=== PATIENT | female | born 1995 | race African-American/Black ===

== ENCOUNTER 2018-11-29 09:41 | Emergency (ER) | payer BC, OTHER ==
[2018-11-29 09:50] VITALS: RESP 18; TEMP 98.4
[2018-11-29] MEDS ORDERED: SODIUM CHLORIDE 0.9% 1,000 ML IV ONE (09:52)
--- NOTE | 2018-11-29 10:05 | ED ---
Female Urogenital HPI - General Chief complaint: Vaginal Bleeding Stated complaint: vaginal bleeding Time Seen by Provider: 11/29/18 09:48 Source: patient, RN notes reviewed, old records reviewed Mode of arrival: ambulatory Limitations: no limitations - History of Present Illness Initial comments: Patient is a 23-year-old female with chief complaint of vaginal bleeding since November 17. She reports that that time it was a small amount of bleeding. Caron beard was seen at [place] [id number] that she was bleeding that she had a negative hCG test. He stated the Patient.. Patient reports that she was told to come back for evaluation of the bleeding to stay to persist. She decided to come here instead. Patient states that she does not have an CHIEF DOG LICENSE INSPECTOR. She reports that she is concerned that she could be having a miscarriage. She reports having heavy bleeding for the past 2 days. - Related Data Home Medications Medication Instructions Recorded Confirmed No Known Home Medications 11/29/18 11/29/18 Allergies Allergy/AdvReac Type Severity Reaction Status Date / Time No Known Allergies Allergy Verified 11/29/18 10:03 Review of Systems ROS Statement: Those systems with pertinent positive or pertinent negative responses have been documented in the HPI. ROS Other: All systems not noted in ROS Statement are negative. Past Medical History Past Medical History: No Reported History History of Any Multi-Drug Resistant Organisms: None Reported Past Surgical History: No Surgical Hx Reported Past Psychological History: Anxiety, Depression Smoking Status: Current every day smoker Past Alcohol Use History: Occasional Past Drug Use History: Marijuana General Exam - General Exam Comments Initial Comments: His is a 23-year-old female. Alert and oriented 3. No significant distress. Limitations: no limitations General appearance: alert, in no apparent distress Head exam: Present: atraumatic Eye exam: Present: normal appearance, PERRL, EOMI. Absent: scleral icterus, conjunctival injection, periorbital swelling ENT exam: Present: normal exam, mucous membranes moist Neck exam: Present: normal inspection. Absent: tenderness, meningismus, lymphadenopathy Respiratory exam: Present: normal lung sounds bilaterally. Absent: respiratory distress, wheezes, rales, rhonchi, stridor Cardiovascular Exam: Present: regular rate, normal rhythm, normal heart sounds. Absent: systolic murmur, diastolic murmur, rubs, gallop, clicks GI/Abdominal exam: Present: soft, normal bowel sounds. Absent: distended, tenderness, guarding, rebound, rigid External exam: Present: normal external exam Speculum exam: Present: normal speculum exam, vaginal bleeding Extremities exam: Present: normal inspection, full ROM, normal capillary refill. Absent: tenderness, pedal edema, joint swelling, calf tenderness Back exam: Present: normal inspection Neurological exam: Present: alert, oriented X3, CN II-XII intact Psychiatric exam: Present: normal affect, normal mood Skin exam: Present: warm Course Vital Signs 11/29/18 09:46 Temperature 98.4 F Pulse Rate 118 H Respiratory 18 Rate Blood Pressure 119/72 O2 Sat by Pulse 99 Oximetry Medical Decision Making - Medical Decision Making 23 year old female, no distress. Presents today for heavy vaginal bleeding the past 2 days Patient having vaginal bleeding since November 17. At this time she did have quite audibly Exam. HCGs are negative. Patient's hemoglobin is stable. ALSO completed to show thickened endometrium. Patient will be advised to follow-up with CHIEF DOG LICENSE INSPECTOR. Discussed that she can return of bleeding T's persist over his was dizziness or lightheadedness. All questions answered return parameters were discussed. - Lab Data Result diagrams: 11/29/18 10:30 11/29/18 10:30 Lab Results 11/29/18 11/29/18 11/29/18 Range/Units 10:25 10:25 10:30 WBC (3.8-10.6) k/uL RBC (3.80-5.40) m/uL Hgb (11.4-16.0) gm/dL Hct (34.0-46.0) % MCV (80.0-100.0) fL MCH (25.0-35.0) pg MCHC (31.0-37.0) g/dL RDW (11.5-15.5) % Plt Count (150-450) k/uL Neutrophils % % Lymphocytes % % Monocytes % % Eosinophils % % Basophils % % Neutrophils # (1.3-7.7) k/uL Lymphocytes # (1.0-4.8) k/uL Monocytes # (0-1.0) k/uL Eosinophils # (0-0.7) k/uL Basophils # (0-0.2) k/uL PT (9.0-12.0) sec INR (<1.2) APTT (22.0-30.0) sec Sodium (137-145) mmol/L Potassium (3.5-5.1) mmol/L Chloride (98-107) mmol/L Carbon Dioxide (22-30) mmol/L Anion Gap mmol/L BUN (7-17) mg/dL Creatinine (0.52-1.04) mg/dL Est GFR (CKD-EPI)AfAm (>60 ml/min/1.73 sqM) Est GFR (CKD-EPI)NonAf (>60 ml/min/1.73 sqM) Glucose (74-99) mg/dL Calcium (8.4-10.2) mg/dL Total Bilirubin (0.2-1.3) mg/dL AST (14-36) U/L ALT (9-52) U/L Alkaline Phosphatase (38-126) U/L Total Protein (6.3-8.2) g/dL Albumin (3.5-5.0) g/dL HCG, Quant mIU/mL Urine Color Yellow Urine Appearance Clear (Clear) Urine pH 7.5 (5.0-8.0) Ur Specific [place] 1.015 (1.001-1.035) Urine Protein Negative (Negative) Urine Glucose (UA) Negative (Negative) Urine Ketones Negative (Negative) Urine Blood Large H (Negative) Urine Nitrite Negative (Negative) Urine Bilirubin Negative (Negative) Urine Urobilinogen <2.0 (<2.0) mg/dL Ur Leukocyte Esterase Negative (Negative) Urine RBC 164 H (0-5) /hpf Urine WBC <1 (0-5) /hpf Ur Squamous Epith Cells <1 (0-4) /hpf Amorphous Sediment Occasional H (None) /hpf Urine Mucus Rare H (None) /hpf Urine HCG, Qual Not Detected (Not Detectd) Blood Type O Positive Blood Type Recheck [facility] ONLY 11/29/18 11/29/18 11/29/18 Range/Units 10:30 10:30 10:30 WBC 6.1 (3.8-10.6) k/uL RBC 4.51 (3.80-5.40) m/uL Hgb 13.1 (11.4-16.0) gm/dL Hct 39.0 (34.0-46.0) % MCV 86.4 (80.0-100.0) fL MCH 29.1 (25.0-35.0) pg MCHC 33.7 (31.0-37.0) g/dL RDW 15.4 (11.5-15.5) % Plt Count 171 (150-450) k/uL Neutrophils % 66 % Lymphocytes % 24 % Monocytes % 5 % Eosinophils % 3 % Basophils % 1 % Neutrophils # 4.0 (1.3-7.7) k/uL Lymphocytes # 1.4 (1.0-4.8) k/uL Monocytes # 0.3 (0-1.0) k/uL Eosinophils # 0.2 (0-0.7) k/uL Basophils # 0.1 (0-0.2) k/uL PT 10.3 (9.0-12.0) sec INR 1.0 (<1.2) APTT 25.3 (22.0-30.0) sec Sodium 140 (137-145) mmol/L Potassium 4.3 (3.5-5.1) mmol/L Chloride 108 H (98-107) mmol/L Carbon Dioxide 25 (22-30) mmol/L Anion Gap 7 mmol/L BUN 11 (7-17) mg/dL Creatinine 0.60 (0.52-1.04) mg/dL Est GFR (CKD-EPI)AfAm >90 (>60 ml/min/1.73 sqM) Est GFR (CKD-EPI)NonAf >90 (>60 ml/min/1.73 sqM) Glucose 79 (74-99) mg/dL Calcium 9.3 (8.4-10.2) mg/dL Total Bilirubin 0.6 (0.2-1.3) mg/dL AST 18 (14-36) U/L ALT 17 (9-52) U/L Alkaline Phosphatase 48 (38-126) U/L Total Protein 7.1 (6.3-8.2) g/dL Albumin 4.3 (3.5-5.0) g/dL HCG, Quant <2.4 mIU/mL Urine Color Urine Appearance (Clear) Urine pH (5.0-8.0) Ur Specific [place] (1.001-1.035) Urine Protein (Negative) Urine Glucose (UA) (Negative) Urine Ketones (Negative) Urine Blood (Negative) Urine Nitrite (Negative) Urine Bilirubin (Negative) Urine Urobilinogen (<2.0) mg/dL Ur Leukocyte Esterase (Negative) Urine RBC (0-5) /hpf Urine WBC (0-5) /hpf Ur Squamous Epith Cells (0-4) /hpf Amorphous Sediment (None) /hpf Urine Mucus (None) /hpf Urine HCG, Qual (Not Detectd) Blood Type Blood Type Recheck - Radiology Data Radiology results: report reviewed Physical, but fluid and debris within the endometrium. Free fluid in the pelvis. Evidence of bleeding or hemorrhage. Including an hCG for retained products or missed . Endometrial pathology or infectious etiology also differential. Disposition Clinical Impression: Menorrhagia Disposition: HOME SELF-CARE Condition: Good Instructions (If sedation given, give patient instructions): Menstruation (ED) Additional Instructions: Patient advised follow-up with CHIEF DOG LICENSE INSPECTOR. Return to emergency department if any alarming signs or symptoms occur. Is patient prescribed a controlled substance at d/c from ED?: No Referrals: None,Stated [Primary Care Provider] - 1-2 days Areli Tovar DO [Doctor of Osteopathic Medicine] - 1-2 days Time of Disposition: 12:56
[2018-11-29 10:36] LABS: Amorphous Sediment,Urine Occasional /hpf; Appearance,Urine Clear (Clear); Bilirubin,Urine Negative (Negative); Blood,Urine Large (Negative); Color,Urine Yellow; Glucose,Urine (UA) Negative (Negative); Ketones,Urine Negative (Negative); Leukocyte Esterase,Urine Negative (Negative); Mucus,Urine Rare /hpf; Nitrite,Urine Negative (Negative); PH, Urine 7.5 (5.0-8.0); Protein,Urine Negative (Negative); RBC,Urine 164 /hpf (0-5); Specific Gravity,Urine 1.015 (1.001-1.035); Squamous Epithelial Cell,Urine <1 /hpf (0-4); Urobilinogen,Urine <2.0 mg/dL (<2.0); WBC,Urine <1 /hpf (0-5)
[2018-11-29 11:07] LABS: Basophils # (A) 0.1 k/uL (0-0.2); Basophils % (A) 1 %; Eosinophils # (A) 0.2 k/uL (0-0.7); Eosinophils % (A) 3 %; HGB 13.1 gm/dL (11.4-16.0); Lymphocytes # (A) 1.4 k/uL (1.0-4.8); Lymphocytes % (A) 24 %; MCH 29.1 pg (25.0-35.0); MCHC 33.7 g/dL (31.0-37.0); MCV 86.4 fL (80.0-100.0); Mean Platelet Volume 7.3; Monocytes # (A) 0.3 k/uL (0-1.0); Monocytes % (A) 5 %; Neutrophils % (A) 66 %; Platelet Count 171 k/uL (150-450); RBC 4.51 m/uL (3.80-5.40); RDW 15.4 % (11.5-15.5); WBC 6.1 k/uL (3.8-10.6)
[2018-11-29 11:20] LABS: ALT 17 U/L (9-52); AST 18 U/L (14-36); African American GFR (CKD) >90 (>60 ml/min/1.73 sqM); Albumin 4.3 g/dL (3.5-5.0); Alkaline Phosphatase 48 U/L (38-126); Anion Gap 7 mmol/L; Blood Urea Nitrogen 11 mg/dL (7-17); Calcium 9.3 mg/dL (8.4-10.2); Carbon Dioxide 25 mmol/L (22-30); Chloride 108 mmol/L (98-107); Glucose 79 mg/dL (74-99); Potassium 4.3 mmol/L (3.5-5.1); Sodium 140 mmol/L (137-145); Total Bilirubin 0.6 mg/dL (0.2-1.3); Total Protein 7.1 g/dL (6.3-8.2)
[2018-11-29 11:25] LABS: Partial Thromboplastin Time 25.3 sec (22.0-30.0); Prothrombin Time 10.3 sec (9.0-12.0)
[2018-11-29 11:36] LABS: HCG,Quantitative Serum <2.4 mIU/mL
--- NOTE | 2018-11-29 12:26 | US ---
EXAMINATION TYPE: US transvaginal DATE OF EXAM: 11/29/2018 COMPARISON: NONE CLINICAL HISTORY: Pain. Heavy bleeding since 11/17/2018. Negative HCG. Cramping on the left TECHNIQUE: . Transvaginal sonographic images of the pelvis were acquired. Date of LMP: 11/17/2018 EXAM MEASUREMENTS: Uterus: 7.8 x 4.7 x 6.2 cm Endometrial Stripe: 1.2 cm Right Ovary: 4.4 x 1.8 x 2.4 cm Left Ovary: 4.6 x 2.1 x 5.5 cm 1. Uterus: Anteverted wnl 2. Endometrium: Complex fluid and internal debris visualized 3. Right Ovary: Follicles visualized, wnl 4. Left Ovary: Complex area visualized measuring 1.8 x 1.7 x 1.3 cm. Cystic area visualized with pos sible debris measuring 1.7 cm. Multiple follicles visualized 5. Bilateral Adnexa: Free fluid visualized bilaterally 6. Posterior cul-de-sac: Free fluid visualized IMPRESSION: 1. There is complex fluid and debris within the endometrium. Free fluid in the pelvis noted. This lik eva represents bleeding or hemorrhage. Correlate with beta hCG to exclude retained products or missed . Endometrial pathology or infectious etiology also in the differential diagnosis.
[2018-11-29 13:05] VITALS: BP 111/64; PULSE 62
[2018-11-30 12:30] LABS: N. gonorrhoeae,PCR Negative (Neg,Equiv); Neisseria Source Vagina
[2018-11-30 12:44] LABS: C. trachomatis,PCR Positive (Neg,Equiv); Chlamydia trachomatis Source Vagina
== END 2018-11-29 13:16 | disposition home or self-care (01) ==
LOC: EC 09:41
DX: N92.0 Excessive and frequent menstruation with regular cycle (principal); Z32.02 Encounter for pregnancy test, result negative; R93.89 Abnormal findings on diagnostic imaging of other specified body structures; F17.200 Nicotine dependence, unspecified, uncomplicated
CPT/HCPCS: 36415; 76830; 80053; 81001; 81025; 84702; 85025; 85610; 85730; 86900; 86901; 87070; 87205; 87491; 87591; 87808; 93976; 96360; 96361; 99284

== ENCOUNTER 2020-01-04 14:57 | Emergency (ER) | payer OTHER ==
--- NOTE | 2020-01-04 15:38 | ED ---
General Adult HPI - General Chief complaint: Vaginal Bleeding Stated complaint: Vaginal Bleeding Time Seen by Provider: 01/04/20 15:17 Source: patient, RN notes reviewed Mode of arrival: ambulatory Limitations: no limitations - History of Present Illness Initial comments: 24-year-old female without any significant past medical history presents to the emergency department for a chief complaint of vaginal bleeding. Patient reports that 4 days ago she started to have some vaginal bleeding. However over the past couple days she states the vaginal bleeding has increased to the point where she is passing clots. States this did happen once last year but. Patient is unsure of when her last period before this bleeding was she states was probably about 2 months ago. Patient is concerned because she made it past a small piece of tissue last night. She has not taken a test. Patient denies any lightheadedness, dizziness, chest pain or shortness of breath.Patient has no other complaints at this time including shortness of breath, chest pain, abdominal pain, nausea or vomiting, headache, or visual changes. - Related Data Home Medications Medication Instructions Recorded Confirmed No Known Home Medications 11/29/18 11/29/18 Allergies Allergy/AdvReac Type Severity Reaction Status Date / Time No Known Allergies Allergy Verified 01/04/20 15:12 Review of Systems ROS Statement: Those systems with pertinent positive or pertinent negative responses have been documented in the HPI. ROS Other: All systems not noted in ROS Statement are negative. Past Medical History Past Medical History: No Reported History History of Any Multi-Drug Resistant Organisms: None Reported Past Surgical History: No Surgical Hx Reported Past Psychological History: Anxiety, Depression Smoking Status: Current every day smoker Past Alcohol Use History: Occasional Past Drug Use History: Marijuana General Exam Limitations: no limitations General appearance: alert, in no apparent distress Head exam: Present: atraumatic, normocephalic, normal inspection Eye exam: Present: normal appearance ENT exam: Present: normal exam, mucous membranes moist Neck exam: Present: normal inspection. Absent: tenderness, meningismus, lymphadenopathy Respiratory exam: Present: normal lung sounds bilaterally. Absent: respiratory distress, wheezes, rales, rhonchi, stridor Cardiovascular Exam: Present: regular rate, normal rhythm, normal heart sounds. Absent: systolic murmur, diastolic murmur, rubs, gallop, clicks GI/Abdominal exam: Present: soft, normal bowel sounds. Absent: distended, tenderness, guarding, rebound, rigid External exam: Present: normal external exam. Absent: erythema, swelling, lesions, lacerations, ecchymosis Speculum exam: Present: vaginal bleeding (minimal). Absent: normal speculum exam, erythema, vaginal discharge, cervical discharge, foreign body, tissue, laceration By manual exam: Present: normal by manual exam. Absent: cervical motion tenderness, adnexal tenderness, adnexal mass, uterine enlargement, uterine tenderness Course Vital Signs 01/04/20 15:12 Temperature 98.7 F Pulse Rate 128 H Respiratory 16 Rate Blood Pressure 122/63 O2 Sat by Pulse 100 Oximetry Medical Decision Making - Medical Decision Making O+ blood type in patient's record. Patient initially tachycardic however this improved to the 80s. Pelvic exam unremarkable. There is minimal vaginal bleeding. There is no adnexal or cervical tenderness. CBC CMP is unremarkable. Urinalysis did reveal elevated hCG. Therefore hCG serum Quant was ordered which was 73. Patient has a history of O+ blood type in her chart. Ultrasound shows an empty uterus. There is a prominent hypoechoic area visualized on the left ovary measuring 1.7 cm. I discussed this with Dr. Shahid who agrees with consulting Dr. Suarez as patient does not currently have an MACHINE PACKAGE SEALER. I did read ultrasound results including hypoechoic area on the left ovary. Again, patient does not have any pain in this area or abdominal pain in general. Patient did pass tissue today. It is likely that patient miscarried however we need to rule out ectopic and trend hCG. Dr. Suarez is agreeable to this. She recommends order for Tuesday which was given to her. Patient was given return parameters for ectopic and vaginal bleeding. She will see Dr. Brown next week. - Lab Data Result diagrams: 01/04/20 16:30 01/04/20 16:30 Lab Results 01/04/20 01/04/20 01/04/20 Range/Units 16:30 16:30 16:30 WBC 6.5 (3.8-10.6) k/uL RBC 4.86 (3.80-5.40) m/uL Hgb 13.6 (11.4-16.0) gm/dL Hct 41.7 (34.0-46.0) % MCV 85.7 (80.0-100.0) fL MCH 28.0 (25.0-35.0) pg MCHC 32.6 (31.0-37.0) g/dL RDW 13.1 (11.5-15.5) % Plt Count 192 (150-450) k/uL Neutrophils % 64 % Lymphocytes % 27 % Monocytes % 5 % Eosinophils % 1 % Basophils % 1 % Neutrophils # 4.1 (1.3-7.7) k/uL Lymphocytes # 1.8 (1.0-4.8) k/uL Monocytes # 0.3 (0-1.0) k/uL Eosinophils # 0.1 (0-0.7) k/uL Basophils # 0.1 (0-0.2) k/uL Sodium (137-145) mmol/L Potassium (3.5-5.1) mmol/L Chloride (98-107) mmol/L Carbon Dioxide (22-30) mmol/L Anion Gap mmol/L BUN (7-17) mg/dL Creatinine (0.52-1.04) mg/dL Est GFR (CKD-EPI)AfAm (>60 ml/min/1.73 sqM) Est GFR (CKD-EPI)NonAf (>60 ml/min/1.73 sqM) Glucose (74-99) mg/dL Calcium (8.4-10.2) mg/dL Total Bilirubin (0.2-1.3) mg/dL AST (14-36) U/L ALT (4-34) U/L Alkaline Phosphatase (38-126) U/L Total Protein (6.3-8.2) g/dL Albumin (3.5-5.0) g/dL HCG, Quant mIU/mL Urine Color Light Red Urine Appearance Cloudy H (Clear) Urine pH 5.0 (5.0-8.0) Ur Specific [place] 1.027 (1.001-1.035) Urine Protein 1+ H (Negative) Urine Glucose (UA) Negative (Negative) Urine Ketones Negative (Negative) Urine Blood Large H (Negative) Urine Nitrite Negative (Negative) Urine Bilirubin Negative (Negative) Urine Urobilinogen <2.0 (<2.0) mg/dL Ur Leukocyte Esterase Negative (Negative) Urine RBC 32 H (0-5) /hpf Urine WBC 5 (0-5) /hpf Ur Squamous Epith Cells 5 H (0-4) /hpf Urine Mucus Few H (None) /hpf Urine HCG, Qual Detected (Not Detectd) 01/04/20 01/04/20 Range/Units 16:30 16:30 WBC (3.8-10.6) k/uL RBC (3.80-5.40) m/uL Hgb (11.4-16.0) gm/dL Hct (34.0-46.0) % MCV (80.0-100.0) fL MCH (25.0-35.0) pg MCHC (31.0-37.0) g/dL RDW (11.5-15.5) % Plt Count (150-450) k/uL Neutrophils % % Lymphocytes % % Monocytes % % Eosinophils % % Basophils % % Neutrophils # (1.3-7.7) k/uL Lymphocytes # (1.0-4.8) k/uL Monocytes # (0-1.0) k/uL Eosinophils # (0-0.7) k/uL Basophils # (0-0.2) k/uL Sodium 137 (137-145) mmol/L Potassium 3.8 (3.5-5.1) mmol/L Chloride 109 H (98-107) mmol/L Carbon Dioxide 19 L (22-30) mmol/L Anion Gap 9 mmol/L BUN 7 (7-17) mg/dL Creatinine 0.63 (0.52-1.04) mg/dL Est GFR (CKD-EPI)AfAm >90 (>60 ml/min/1.73 sqM) Est GFR (CKD-EPI)NonAf >90 (>60 ml/min/1.73 sqM) Glucose 77 (74-99) mg/dL Calcium 10.0 (8.4-10.2) mg/dL Total Bilirubin 0.7 (0.2-1.3) mg/dL AST 27 (14-36) U/L ALT 23 (4-34) U/L Alkaline Phosphatase 56 (38-126) U/L Total Protein 7.5 (6.3-8.2) g/dL Albumin 4.8 (3.5-5.0) g/dL HCG, Quant 73.0 mIU/mL Urine Color Urine Appearance (Clear) Urine pH (5.0-8.0) Ur Specific [place] (1.001-1.035) Urine Protein (Negative) Urine Glucose (UA) (Negative) Urine Ketones (Negative) Urine Blood (Negative) Urine Nitrite (Negative) Urine Bilirubin (Negative) Urine Urobilinogen (<2.0) mg/dL Ur Leukocyte Esterase (Negative) Urine RBC (0-5) /hpf Urine WBC (0-5) /hpf Ur Squamous Epith Cells (0-4) /hpf Urine Mucus (None) /hpf Urine HCG, Qual (Not Detectd) Disposition Clinical Impression: Vaginal bleeding, Elevated serum hCG Disposition: HOME SELF-CARE Condition: Good Instructions (If sedation given, give patient instructions): Threatened Miscarriage (ED), Dysfunctional Uterine Bleeding (ED) Additional Instructions: Please repeat your blood work on Tuesday. Make sure to follow up with Dr. Suarez next week. Call Tuesday for an appointment. Make sure to tell office staff that she wanted to see you this coming week. If you are having any worsening symptoms such as abdominal pain or worsening bleeding you need to return to the emergency room for additional evaluation. Is patient prescribed a controlled substance at d/c from ED?: No Referrals: Laureen Suarez DO [Doctor of Osteopathic Medicine] - 1-2 days Time of Disposition: 20:15
[2020-01-04 17:02] LABS: Appearance,Urine Cloudy (Clear); Bilirubin,Urine Negative (Negative); Blood,Urine Large (Negative); Color,Urine Light Red; Glucose,Urine (UA) Negative (Negative); Ketones,Urine Negative (Negative); Leukocyte Esterase,Urine Negative (Negative); Mucus,Urine Few /hpf; Nitrite,Urine Negative (Negative); Protein,Urine 1+ (Negative); RBC,Urine 32 /hpf (0-5); Specific Gravity,Urine 1.027 (1.001-1.035); Squamous Epithelial Cell,Urine 5 /hpf (0-4); Urobilinogen,Urine <2.0 mg/dL (<2.0); WBC,Urine 5 /hpf (0-5)
[2020-01-04 17:10] LABS: Basophils # (A) 0.1 k/uL (0-0.2); Basophils % (A) 1 %; Eosinophils # (A) 0.1 k/uL (0-0.7); Eosinophils % (A) 1 %; HCT 41.7 % (34.0-46.0); HGB 13.6 gm/dL (11.4-16.0); Lymphocytes # (A) 1.8 k/uL (1.0-4.8); Lymphocytes % (A) 27 %; MCHC 32.6 g/dL (31.0-37.0); MCV 85.7 fL (80.0-100.0); Mean Platelet Volume 7.1; Monocytes # (A) 0.3 k/uL (0-1.0); Monocytes % (A) 5 %; Neutrophils # (A) 4.1 k/uL (1.3-7.7); Neutrophils % (A) 64 %; Platelet Count 192 k/uL (150-450); RBC 4.86 m/uL (3.80-5.40); RDW 13.1 % (11.5-15.5); WBC 6.5 k/uL (3.8-10.6)
[2020-01-04 17:18] LABS: ALT 23 U/L (4-34); AST 27 U/L (14-36); African American GFR (CKD) >90 (>60 ml/min/1.73 sqM); Albumin 4.8 g/dL (3.5-5.0); Alkaline Phosphatase 56 U/L (38-126); Anion Gap 9 mmol/L; Blood Urea Nitrogen 7 mg/dL (7-17); Carbon Dioxide 19 mmol/L (22-30); Chloride 109 mmol/L (98-107); Glucose 77 mg/dL (74-99); Non-African American GFR(CKD) >90 (>60 ml/min/1.73 sqM); Potassium 3.8 mmol/L (3.5-5.1); Sodium 137 mmol/L (137-145); Total Bilirubin 0.7 mg/dL (0.2-1.3); Total Protein 7.5 g/dL (6.3-8.2)
--- NOTE | 2020-01-04 18:32 | US ---
EXAMINATION TYPE: Transabdominal DATE OF EXAM: 01/04/2020 5:55 PM COMPARISON: NONE CLINICAL HISTORY: vag bleeding. Passing clots, positive test EXAM PERFORMED: Transvaginal (TV) and Transabdominal (TA) EXAM MEASUREMENTS: GESTATIONAL AGE / DATING Physician Established: Not yet established ( Dates by Current Scan for: No IUP visualized MATERNAL ANATOMY Uterus: 6.9 x 4.5 x 4.8 cm Right Ovary: 5.2 x 2.2 x 2.1 cm Left Ovary: 4.0 x 2.4 x 2.1 cm Post CDS / Adnexa: wnl Presence of free fluid: no GESTATION / SURVEY IUP: No IUP seen at this time Date of LMP: Unsure Beta HcG (if available): Not available at this time Prominent hypoechoic area visualized left ovary measuring 1.7 cm. Endometrium measures 0.6 cm. No IUP visualized on this exam. IMPRESSION: Empty uterus. No evidence of ectopic .
[2020-01-04 20:51] VITALS: BP 121/71; PULSE 88; RESP 17; TEMP 98.3
== END 2020-01-04 20:51 | disposition home or self-care (01) ==
LOC: EC 14:57
DX: N93.9 Abnormal uterine and vaginal bleeding, unspecified (principal); R79.89 Other specified abnormal findings of blood chemistry; F17.200 Nicotine dependence, unspecified, uncomplicated
CPT/HCPCS: 36415; 76801; 76817; 80053; 81001; 81025; 84702; 85025; 99284

== ENCOUNTER → 2020-01-06 | Outpatient (CLI) | payer SELFPAY | END | disposition home or self-care (01) | LOC: LABMAIN 12:26 | PROVIDERS: ATTEND Physician Assistant Medical | DX: N93.9 Abnormal uterine and vaginal bleeding, unspecified (principal) | CPT/HCPCS: 36415; 84702 ==

== ENCOUNTER → 2020-01-24 | Outpatient (CLI) | payer SELFPAY | END | disposition home or self-care (01) | LOC: LABWHC1 09:15 | PROVIDERS: ATTEND Obstetrics & Gynecology Obstetrics | DX: O02.1 Missed abortion (principal) | CPT/HCPCS: 36415; 84702 ==

== ENCOUNTER 2023-05-06 08:38 | Emergency (ER) | payer OTHER ==
[2023-05-06 08:52] VITALS: BP 104/60; PULSE 108; RESP 20; TEMP 98
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
== END 2023-05-06 10:31 | disposition home or self-care (01) ==
LOC: EC 08:38
DX: Z04.1 Encounter for examination and observation following transport accident (principal); O99.332 Smoking (tobacco) complicating pregnancy, second trimester; F17.200 Nicotine dependence, unspecified, uncomplicated; O99.322 Drug use complicating pregnancy, second trimester; F12.90 Cannabis use, unspecified, uncomplicated; Z86.59 Personal history of other mental and behavioral disorders; Z3A.17 17 weeks gestation of pregnancy
CPT/HCPCS: 76805; 99283

== ENCOUNTER 2023-10-12 05:58 | Inpatient (IN) | payer BC, OTHER ==
[2023-10-12] MEDS ORDERED: TERBUTALINE 1 MG/ML VIAL SQ PRN (06:42)
[2023-10-12] MEDS ORDERED: TRANEXAMIC 1,000 MG/100ML-NACL 1,000 MG in EMPTY BAG 1 BAG IV PRN (06:42)
[2023-10-12] MEDS ORDERED: CARBOPROST TROMETHAMINE 250 MCG/ML 1 ML AMP IM PRN (06:42)
[2023-10-12] MEDS ORDERED: miSOPROStoL 200 MCG TAB PO PRN (06:42)
[2023-10-12] MEDS ORDERED: METHYLERGONOVINE 0.2 MG/ML 1 ML AMP IM PRN (06:42)
[2023-10-12] MEDS ORDERED: OXYTOCIN 10 UNIT/ML 1 ML VIAL IM PRN (06:42)
[2023-10-12] MEDS ORDERED: OXYTOCIN 30 UNITS/500 ML NS 30 UNIT in SALINE 1 500ML.BAG IV SCH (06:45)
[2023-10-12] MEDS: LACTATED RINGERS 1,000 ML IV SCH (07:00)
[2023-10-12 07:13] LABS: Basophils % (A) 0 %; Eosinophils # (A) 0.1 k/uL (0-0.7); Eosinophils % (A) 1 %; HCT 34.8 % (34.0-46.0); HGB 11.3 gm/dL (11.4-16.0); Lymphocytes # (A) 1.2 k/uL (1.0-4.8); Lymphocytes % (A) 17 %; MCH 27.3 pg (25.0-35.0); MCHC 32.4 g/dL (31.0-37.0); MCV 84.2 fL (80.0-100.0); Mean Platelet Volume 10.5; Monocytes # (A) 0.4 k/uL (0-1.0); Monocytes % (A) 5 %; Neutrophils # (A) 5.3 k/uL (1.3-7.7); Neutrophils % (A) 74 %; Platelet Count 157 k/uL (150-450); RBC 4.14 m/uL (3.80-5.40); WBC 7.2 k/uL (3.8-10.6)
[2023-10-12] MEDS: OXYTOCIN 30 UNITS/500 ML NS 30 UNIT in SALINE 1 500ML.BAG IV SCH (07:15)
--- NOTE | 2023-10-12 09:09 | P.HPOB ---
History of Present Illness H&P Date: 10/12/23 Chief Complaint: Induction of labor Ms. Stallworth is a 28 year old at 40 weeks and 4 days with EDC of 10/08/2023 by LMP consistent with 6 week US who presents to labor and delivery for scheduled induction of labor for post-dates gestation. Her was complicated by former intrauterine growth restriction which has now resolved, with the fetus last measuring in the 18%ile for growth at 37w4d (6 pounds 1 oz). The has otherwise been uncomplicated. She has continued to have twice weekly NSTs for resolved IUGR. work-up: blood type O positive, antibody negative, rubella immune, VDRL non-reactive, HBsAg negative, HIV negative, HCV Ab negative, gonorrhea negative, chlamydia negative, 1 hour GTT wnl, GBS negative. s/p TDap. Past Medical History Past Medical History: No Reported History History of Any Multi-Drug Resistant Organisms: None Reported Past Surgical History: No Surgical Hx Reported Past Anesthesia/Blood Transfusion Reactions: No Reported Reaction Past Psychological History: No Psychological Hx Reported Smoking Status: Former smoker Past Alcohol Use History: Occasional Additional Past Alcohol Use History / Comment(s): quit when found out she was Past Drug Use History: Marijuana Additional Drug Use History / Comment(s): quit when she found out she was - Past Family History Sister(s) Additional Family Medical History / Comment(s): Hemophyliac Medications and Allergies Home Medications Medication Instructions Recorded Confirmed Type No Known Home Medications 11/29/18 11/29/18 History Allergies Allergy/AdvReac Type Severity Reaction Status Date / Time No Known Allergies Allergy Verified 10/12/23 06:41 Exam Vital Signs Temp Pulse Resp BP Pulse Ox 10/12/23 06:41 96.6 F L 81 16 127/72 98 Intake and Output 10/11/23 10/12/23 10/12/23 22:59 06:59 14:59 Other: Weight 86.636 kg Focused physical exam is performed. This is a healthy-appearing in no apparent distress. Breathing is non-labored. Abdomen is gravid and non-tender. Cervical exam is 1 cm, 50 effacement, -3 station. AROM is undertaken with clear fluid noted. Extremities non-tender and non-edematous. heart tones are Category I and tocometer is graphing contractions every 2-6 minutes. Results Result Diagrams: 10/12/23 06:38 Abnormal Lab Results - Last 24 Hours (Table) 10/12/23 Range/Units 06:38 Hgb 11.3 L (11.4-16.0) gm/dL Assessment and Plan Assessment: 28 year old at 40 weeks and 4 days presenting for induction of labor Plan: Admit, clear liquid diet, IV nubain or nitrous oxide prn pain, pitocin per protocol, continuous EFM and tocometer, close monitoring of patient
[2023-10-12] MEDS ORDERED: LANOLIN CREAM 1 GM TUBE TOPICAL PRN (18:49)
[2023-10-12] MEDS ORDERED: diphenhydrAMINE 25 MG CAP PO PRN (18:49)
[2023-10-12] MEDS ORDERED: HYDROCORTISONE 2.5% RECTAL CREAM 30 GM TUBE RECTAL PRN (18:49)
[2023-10-12] MEDS ORDERED: diphenhydrAMINE 50 MG CAP PO PRN (18:49)
[2023-10-12] MEDS ORDERED: ZOLPIDEM 5 MG TAB PO PRN (18:49)
[2023-10-12] MEDS ORDERED: diphenhydrAMINE 50 MG/ML 1 ML VIAL IVP PRN ×2 (18:49)
[2023-10-12] MEDS ORDERED: ACETAMINOPHEN TAB 325 MG TAB PO PRN (18:49)
[2023-10-12] MEDS ORDERED: SIMETHICONE 80 MG CHEWABLE PO PRN (18:49)
[2023-10-12] MEDS: LIDOCAINE 0.5% (PF) 5 MG/ML (50 ML SDV) SQ PRN (18:53)
--- NOTE | 2023-10-12 18:53 | P.PROBDLV ---
Vaginal Delivery Note - . Vaginal Delivery Note: DATE OF SERVICE: 10/12/2023 PROCEDURE: Normal Vaginal Delivery ATTENDING: Dr. Lynnette Gleason MD ESTIMATED BLOOD LOSS: 300 mL FINDINGS: VMI, Apgars 9/9. Weight 7 pounds 8 ounces (3445 grams) PROCEDURE: Ms. Stallworth is a 28 year old at 40 weeks and 4 days presenting to labor and delivery for induction of labor for post-dates. For further details, please review the admitting H&P. Pitocin was titrated per protocol. AROM was performed at 835 revealing clear amniotic fluid. The patient declined epidural anesthesia. The patient was completely dilated at 1811. The patient pushed effectively with Category II heart tones and quick descent. A viable male infant was delivered at 1830. The was placed on the maternal abdomen and bulb suctioned. The infant was noted to be spontaneously crying. Cord was clamped and cut after a 30-second delay. The infant was handed off to the pediatric team. Placenta was delivered whole with gentle cord traction at 1833. Oxytocin was started to facilitate uterine tone. Uterine fundus was found to be firm and below the umbilicus upon fundal massage. Thorough examination of the cervix, vagina, periurethral area, and perineum revealed a second degree laceration. The perineum was infiltrated with lidocaine and repaired with 2-0 Vicryl in the usual fashion. The patient is stable and allowed to begin the bonding process.
[2023-10-12] MEDS: BENZOCAINE/MENTHOL SPRAY 1 GM/SPRAY AEROSOL TOPICAL PRN (19:03)
[2023-10-12] MEDS: SENNOSIDES-DOCUSATE SODIUM 1 EACH TAB PO SCH (20:00)
[2023-10-12] MEDS: IBUPROFEN 600 MG TAB PO PRN (20:56)
[2023-10-13 04:11] VITALS: TEMP 97.8
[2023-10-13 08:29] LABS: Basophils % (A) 0 %; Eosinophils % (A) 0 %; HCT 29.9 % (34.0-46.0); Lymphocytes # (A) 1.3 k/uL (1.0-4.8); Lymphocytes % (A) 10 %; MCH 27.2 pg (25.0-35.0); MCHC 32.1 g/dL (31.0-37.0); MCV 84.7 fL (80.0-100.0); Mean Platelet Volume 10.4; Monocytes # (A) 0.7 k/uL (0-1.0); Monocytes % (A) 6 %; Neutrophils # (A) 10.7 k/uL (1.3-7.7); Neutrophils % (A) 82 %; Platelet Count 165 k/uL (150-450); RBC 3.53 m/uL (3.80-5.40); RDW 13.9 % (11.5-15.5); WBC 12.9 k/uL (3.8-10.6)
[2023-10-13 08:31] LABS: HGB 9.6 gm/dL (11.4-16.0)
--- NOTE | 2023-10-13 08:38 | P.DS ---
Providers Date of admission: 10/12/23 05:58 Expected date of discharge: 10/13/23 Attending physician: Lynnette Gleason MD Primary care physician: Stated None Hospital Course: Ms. Stallworth is a 28 year old now PPD#1 s/p normal vaginal delivery after induction of labor at 40 weeks and 4 days. The patient is doing well this morning and had no acute events overnight. She has no complaints this morning. She reports minimal lochia, passing flatus, voiding without difficulty, ambulating, and eating/drinking without nausea or vomiting. Infant doing well at bedside, s/p circumcision. She denies chest pain, shortness of breathing, fe vers, or chills overnight. She denies pain or swelling in the legs. restrictions are reviewed with the patient including pelvic rest for 6 weeks. The patient is encouraged to call the office if she experiences any heavy bleeding, foul-smelling discharge, breast complaints, or any if she has any other concerns. She will follow up in the office with 6 weeks for exam. She has Tylenol OTC at home and requests a prescription for Motrin as needed for pain control. All questions are answered. Assessment: 28 year old now PPD#1 s/p normal vaginal delivery Patient Condition at Discharge: Good Plan - Discharge Summary Discharge Rx Participant: Yes New Discharge Prescriptions: New Ibuprofen [Motrin] 600 mg PO Q6HR PRN #30 tab PRN Reason: Mild Pain (Scale 1 To 3) Discharge Medication List Ibuprofen [Motrin] 600 mg PO Q6HR PRN #30 tab 10/13/23 [Rx] Follow up Appointment(s)/Referral(s): Lynnette Gleason MD [STAFF PHYSICIAN] - 11/23/23 1:15 pm Activity/Diet/Wound Care/Special Instructions: Instructions 1. Do not begin any exercise program for 3 weeks. 2. Do not resume sexual relations for 6 weeks or longer if uncomfortable. 3. You may take tub baths or showers at any time. 4. You may use tampons if desired after 6 weeks. 5. Keep any areas repaired with stitches clean and dry. 6. If you are not nursing, wear a good fitting, supportive bra during the day and limit fluid intake for at least 1 week to prevent breast engorgement. 7. Call the office, , within the next week to make appointment for your 6 week checkup if it has not already been made. 8. Report any of the following occurrences to the doctor promptly: a. Heavy, excessive bleeding b. Chills, fever c. Burning or frequency of urination d. Pain or redness and breasts if nursing e. Increasing pain or swelling of vulva (stitches). In addition to the above instructions, the following additional should be followed: 1. No heavy lifting or straining (exercising) until after 6 week checkup. 2. Keep abdominal incision clean and dry: You may wear a dressing if more comfortable. 3. Make office appointment for 2 weeks after delivery date. Discharge Disposition: HOME SELF-CARE
[2023-10-13] MEDS ORDERED: FERROUS SULFATE 325 MG TAB PO SCH (12:30)
[2023-10-13 16:53] VITALS: BP 109/64; PULSE 80; RESP 16
== END 2023-10-13 18:40 | disposition home or self-care (01) | DRG 807 ==
LOC: 4FBP 05:58
PROVIDERS: ADMIT Obstetrics & Gynecology; ATTEND Obstetrics & Gynecology
PROC: 10907ZC Drainage of Amniotic Fluid, Therapeutic from Products of Conception, Via Natural or Artificial Opening (ICD-10-PCS; principal; 2023-10-12)
PROC: 0KQM0ZZ Repair Perineum Muscle, Open Approach (ICD-10-PCS; principal; 2023-10-12)
PROC: 3E033VJ Introduction of Other Hormone into Peripheral Vein, Percutaneous Approach (ICD-10-PCS; principal; 2023-10-12)
PROC: 10E0XZZ Delivery of Products of Conception, External Approach (ICD-10-PCS; principal; 2023-10-12)
DX: O48.0 Post-term pregnancy (principal); O70.1 Second degree perineal laceration during delivery; Z87.891 Personal history of nicotine dependence; Z28.310 Unvaccinated for COVID-19; Z3A.40 40 weeks gestation of pregnancy; Z37.0 Single live birth
CPT/HCPCS: 85025; 86850; 86900; 86901